=== PATIENT | male | born 1940 | race Hispanic/Latino ===

== ENCOUNTER 2019-11-08 20:30 | Emergency (ER) | payer MEDICARE, MEDICAID, SELFPAY ==
--- NOTE | ~2019-11-08 | XR_ITS ---
XR chest 1V portable DATE: 11/08/2019 21:22 INDICATION: Covid exposure to family member. No taste or smell. Weakness. TECHNIQUE: Portable AP chest on 11/08/2019 at 2113 hours COMPARISON: None FINDINGS: There are patchy bilateral pulmonary infiltrates most most prominent in the right mid to up per lung, also involving left mid-upper lung and both lung bases. No pleural effusion or pulmonary vascular congestion or pneumothorax. Normal heart size. There is aortic calcification and unfolding. No hilar or mediastinal enlargement. Diffuse osteopenia. 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 IMPRESSION: Patchy bilateral pulmonary infiltrates Reviewed, dictated and finalized at location A.
--- NOTE | 2019-11-08 20:45 | ECG_ITS ---
Measurements Intervals [place] Rate: 102 P: 2 [place]: 166 QRS: 28 QRSD: 102 T: 27 QT: 330 QTc: 430 Interpretive Statements SINUS TACHYCARDIA VENTRICULAR PREMATURE COMPLEXES BORDERLINE T WAVE ABNORMALITY- INFERIOR LEADS BASELINE ARTIFACT- I, II, III, AVR, AVL, AVF BORDERLINE ECG Electronically Signed On 11-11-2019 15:27:13 CDT by Serjio Woods D.O.
[2019-11-08 20:51] VITALS: BP 160/91; PULSE 108; RESP 25; TEMP 37.1; O2SAT 93
[2019-11-08 21:23] LABS: Basophils Percent Auto 0.3 % (0.2-1.2); Eosinophils Percent Auto 0.4 % (0-4.4); Hematocrit 38.7 % (42.0-52.0); Immature Granulocyte Absolute 0.02 K/mm3 (0.00-0.031); Immature Granulocyte Percent A 0.3 % (0-0.5); Lymphocytes Absolute Auto 1.72 K/mm3 (0.9-3.2); Mean Corpuscular HGB Conc 33.6 g/dl (32-36); Mean Corpuscular Hemoglobin 28.6 pg (26-34); Mean Corpuscular Volume 85.1 fl (80-100); Mean Platelet Volume 10.7 fl (7.4-10.4); Monocytes Absolute Auto 0.7 K/mm3 (0.1-0.6); Monocytes Percent Auto 8.8 % (2.6-8.5); Neutrophils Absolute Auto 5.3 K/mm3 (1.3-6.7); Neutrophils Percent Auto 68.2 % (45.5-73.1); Platelet Count Result 209 k/mm3 (150-375); Red Blood Count 4.55 M/mm3 (4.6-6.20); Red Cell Distribution Width 13.7 % (11.5-14.5); White Blood Count 7.8 K/mm3 (4.5-10.0)
[2019-11-08] MEDS: SODIUM CHLORIDE 0.9% IV 1,000 ML 999 ML IV CONT (21:31)
[2019-11-08 21:32] LABS: D Dimer 0.78 ug/mL (<0.48)
[2019-11-08 21:41] LABS: Alanine Aminotransferase 33 U/L (4-50); Alkaline Phosphatase 99 U/L (38-126); Anion Gap 11 mmol/L (8-16); Aspartate Amino Transferase 39 U/L (17-59); Bilirubin,Total 0.9 mg/dL (0.2-1.3); Blood Urea Nitrogen 22 mg/dL (9-20); Calcium 8.6 mg/dL (8.4-10.2); Carbon Dioxide 25 mmol/L (22-30); Chloride 101 mmol/L (98-107); Estimated Glomerular Filt Rate > 60; Glucose 165 mg/dL (75-110); Potassium 4.3 mmol/L (3.4-5.0); Sodium 137 mmol/L (137-145)
[2019-11-08 21:46] LABS: CRP 15.8 mg/dL (<1.0)
[2019-11-08 22:17] VITALS: BP 121/61; PULSE 94; RESP 20; O2SAT 98
--- NOTE | 2019-11-08 23:16 | ED.GENADULT ---
HPI - General Adult General Chief complaint: Weakness Stated complaint: no taste/smell/weak/tired. fam mem covid+ Time Seen by Provider: 11/08/19 20:47 History of Present Illness HPI narrative: Patient is an 79-year-old male who presents the ER with COVID symptoms. His son-in-law is COVID positive and has been hospitalized. Patient reports cough for the last 4 to 5 days. No dyspnea. He has since lost his ability to taste and smell over the last day. Said increased fatigue. No chest pain or chest pressure. He is without nausea or vomiting. History obtained from his granddaughter. Related Data Home Medications Medication Instructions Recorded Confirmed enalapril maleate 10 mg PO BID 11/08/19 metformin 850 mg PO DAILY 11/08/19 Allergies Allergy/AdvReac Type Severity Reaction Status Date / Time No Known Allergies Allergy Verified 11/08/19 20:33 Review of Systems Review of Systems: All systems reviewed & are unremarkable except as noted in HPI and below Constitutional: Constitutional: Denies chills and Denies fever(s) ENT: Denies nasal congestion and Denies sore throat Cardiovascular: Cardiovascular: Denies chest pain and Denies radiating jaw, neck or arm pain Respiratory: Respiratory: Reports cough, Denies dyspnea and Denies wheezing Gastrointestinal: Gastrointestinal: Denies abdominal pain, Denies nausea and Denies vomiting PMFSH Past Medical History Medical History (Updated 11/08/19 @ 23:20 by Josué Chapman MD) Diabetes Hypertension Surgical History Surgical History (Updated 11/08/19 @ 23:18 by Josué Chapman MD) No history of previous surgery Social History Social History (Updated 11/08/19 @ 23:18 by Josué Chapman MD) Smoking status: Never smoker Exam Narrative: Exam Narrative: GENERAL: Well-appearing, well-nourished, and in no acute distress. HEAD: Normocephalic, atraumatic. ENT: Mucous membranes moist. CHEST: Clear to auscultation. No respiratory distress. HEART: Tachycardic and regular. Normal peripheral pulses. ABDOMEN: Soft, nontender, nondistended. EXTREMITIES: Normal range of motion. No edema. SKIN: Warm, dry, no rash. NEURO: Alert and oriented x3. Course Course Emergency Course: Patient and granddaughter informed of results. Discharge with azithromycin and albuterol. No hypoxia with exertion while in the ER. Vital Signs Vital signs: Vital Signs Temperature 98.8 F 11/08/19 20:51 Pulse Rate 108 H 11/08/19 20:51 Respiratory Rate 25 H 11/08/19 20:51 Blood Pressure 160/91 H 11/08/19 20:51 Pulse Oximetry 93 11/08/19 20:51 Temperature 98.8 F 11/08/19 20:51 Pulse Rate 94 11/08/19 22:17 Respiratory Rate 20 11/08/19 22:17 Blood Pressure 121/61 11/08/19 22:17 Pulse Oximetry 98 11/08/19 22:17 Medical Decision Making Vital Signs Vital Signs: Vital Signs Temperature 98.8 F 11/08/19 20:51 Pulse Rate 108 H 11/08/19 20:51 Respiratory Rate 25 H 11/08/19 20:51 Blood Pressure 160/91 H 11/08/19 20:51 Pulse Oximetry 93 11/08/19 20:51 Temperature 98.8 F 11/08/19 20:51 Pulse Rate 94 11/08/19 22:17 Respiratory Rate 20 11/08/19 22:17 Blood Pressure 121/61 11/08/19 22:17 Pulse Oximetry 98 11/08/19 22:17 Lab Data Result diagrams: 11/08/19 21:12 11/08/19 21:11 Labs: Lab Results 11/08/19 11/08/19 11/08/19 Range/Units 21:11 21:11 21:11 WBC (4.5-10.0) K/mm3 RBC (4.6-6.20) M/mm3 Hgb (14.0-18.0) g/dL Hct (42.0-52.0) % MCV (80-100) fl MCH (26-34) pg MCHC (32-36) g/dl RDW (11.5-14.5) % Plt Count (150-375) k/mm3 MPV (7.4-10.4) fl Immature Gran % (Auto) (0-0.5) % Neut % (Auto) (45.5-73.1) % Lymph % (Auto) (18.3-44.2) % [place] % (Auto) (2.6-8.5) % Eos % (Auto) (0-4.4) % Baso % (Auto) (0.2-1.2) % Lymph # (Auto) (0.9-3.2) K/mm3 [place] # (Auto) (0.1-0.6) K/mm3 Eos # (Auto)
[2019-11-08 23:46] VITALS: BP 116/69; PULSE 81; RESP 18; TEMP 36.6; O2SAT 98
[2019-11-10 11:39] LABS: SARS-CoV-2 RNA PCR Negative
== END 2019-11-08 23:40 | disposition home or self-care (01) ==
PROVIDERS: Emergency Provider Emergency Medicine
DX: J18.9 Pneumonia, unspecified organism (principal); Z20.828 Contact with and (suspected) exposure to other viral communicable diseases; E11.9 Type 2 diabetes mellitus without complications; I10 Essential (primary) hypertension; R00.0 Tachycardia, unspecified; I49.3 Ventricular premature depolarization; R94.31 Abnormal electrocardiogram [ECG] [EKG]
CPT/HCPCS: 36415; 71045; 80053; 85025; 85380; 86140; 87635; 93005; 96360; 99283; C9803; J7030; U0003